=== PATIENT | male | born 1940 | race Caucasian/White ===

== ENCOUNTER 2020-08-15 13:24 | Emergency (ER) | payer MEDICARE, OTHER ==
[2020-08-15 13:29] VITALS: BP 153/91; PULSE 70; RESP 16; TEMP 98
[2020-08-15] MEDS ORDERED: ACETAMINOPHEN TAB 500 MG TAB PO STA (13:43)
--- NOTE | 2020-08-15 13:51 | ED ---
General Adult HPI - General Chief complaint: Back Pain/Injury Stated complaint: Shoulder pain Source: family (Significant other), EMS, RN notes reviewed Mode of arrival: EMS Limitations: no limitations - History of Present Illness Initial comments: 79-year-old male, presents to the emergency room with family after being told up to standing 3 days ago and now complaining of right upper shoulder pain. Significant other states that she took him to the chiropractor yesterday but he has continued to still have pain in that right shoulder. He was concerned for possible tear and recommended her 58 to the emergency room. Patient does have a history of a stroke with some right-sided weakness. Is able to ambulate home with a cane. -: days(s) (3) Location: upper extremity Radiation: extremity (Right shoulder) Severity scale (1-10): 10 Consistency: intermittent Improves with: rest Worsens with: movement Associated Symptoms: denies other symptoms Treatments Prior to Arrival: none - Related Data Home Medications Medication Instructions Recorded Confirmed ARIPiprazole [Abilify] 5 mg PO HS 08/15/20 08/15/20 Acetaminophen Tab [Tylenol Tab] 1,000 mg PO BID PRN 08/15/20 08/15/20 Aspirin EC [Ecotrin Low Dose] 81 mg PO BID 08/15/20 08/15/20 Cholecalciferol [Vitamin D3 (25 50 mcg PO DAILY 08/15/20 08/15/20 Mcg = 1000 Iu)] Citalopram Hydrobromide [CeleXA] 10 mg PO DAILY 08/15/20 08/15/20 Donepezil [Aricept] 10 mg PO HS 08/15/20 08/15/20 Famotidine [Pepcid] 20 mg PO DAILY 08/15/20 08/15/20 Loratadine [Claritin] 10 mg PO HS 08/15/20 08/15/20 Metoprolol Tartrate [Lopressor] 12.5 mg PO BID 08/15/20 08/15/20 Simvastatin [Zocor] 40 mg PO HS 08/15/20 08/15/20 Allergies Allergy/AdvReac Type Severity Reaction Status Date / Time Iodinated Contrast Media AdvReac PALPATATION Verified 08/15/20 15:35 S Review of Systems ROS Statement: Those systems with pertinent positive or pertinent negative responses have been documented in the HPI. ROS Other: All systems not noted in ROS Statement are negative. Past Medical History History of Any Multi-Drug Resistant Organisms: None Reported Past Psychological History: No Psychological Hx Reported Smoking Status: Never smoker Past Alcohol Use History: None Reported Past Drug Use History: None Reported General Exam Limitations: altered mental status (Slow to respond due to previous CVA), physical limitation General appearance: alert, in no apparent distress Head exam: Present: atraumatic, normocephalic, normal inspection Eye exam: Present: normal appearance, PERRL, EOMI. Absent: scleral icterus, conjunctival injection, periorbital swelling Pupils: Present: normal accommodation ENT exam: Present: normal exam, normal oropharynx, mucous membranes moist Neck exam: Present: normal inspection, full ROM. Absent: tenderness, meningismus, lymphadenopathy, thyromegaly Respiratory exam: Present: normal lung sounds bilaterally. Absent: respiratory distress, wheezes, rales, rhonchi, stridor, chest wall tenderness, accessory muscle use, decreased breath sounds, prolonged expiratory Cardiovascular Exam: Present: regular rate, normal rhythm, normal heart sounds. Absent: systolic murmur, diastolic murmur, rubs, gallop, clicks GI/Abdominal exam: Present: soft, normal bowel sounds. Absent: distended, tenderness, guarding, rebound, rigid Extremities exam: Present: normal inspection, tenderness (Right posterior shoulder pain with palpation and abduction), normal capillary refill. Absent: pedal edema, joint swelling, calf tenderness Back exam: Present: normal inspection. Absent: tenderness, CVA tenderness (R), CVA tenderness (L), muscle spasm, paraspinal tenderness, vertebral tenderness, rash noted Neurological exam: Present: alert, CN II-XII intact Psychiatric exam: Present: flat affect Skin exam: Present: warm, dry, intact, normal color. Absent: rash, cyanosis, diaphoretic, erythema, petechiae, pallor, mottled Course Vital Signs 08/15/20 13:25 Temperature 98.0 F Pulse Rate 70 Respiratory 16 Rate Blood Pressure 153/91 O2 Sat by Pulse 97 Oximetry Medical Decision Making - Medical Decision Making Chest x-ray shows mild pulmonary comments in the upper lobes with tiny bilateral pleural effusions which may represent mild congestive heart failure. There is no pneumothorax. There is no evidence of acute fracture or dislocation of the right shoulder. This is likely musculoskeletal pain and will be directed to follow up with primary care doctor next week Tylenol as needed for pain. Disposition Clinical Impression: Musculoskeletal pain of upper extremity Disposition: HOME SELF-CARE Condition: Fair Instructions (If sedation given, give patient instructions): Musculoskeletal Pain (ED), Shoulder Pain (ED) Additional Instructions: Use Tylenol as needed and heat to right shoulder. Follow-up with primary care doctor next week. Return if worsening symptoms or pain. Is patient prescribed a controlled substance at d/c from ED?: No Referrals: None,Stated [REFERRING] - 1-2 days Fede Carrero PAC [PHYSICIAN IMPREGNATOR] - 1-2 days Time of Disposition: 16:21
--- NOTE | 2020-08-15 14:45 | XR ---
EXAMINATION TYPE: XR chest 2V DATE OF EXAM: 08/15/2020 COMPARISON: NONE HISTORY: Pain TECHNIQUE: Frontal and lateral views of the chest are obtained. FINDINGS: Low lung volumes. Heart size is enlarged. Mild interstitial prominence at the upper lobes may represent mild developing edema or crowding from low lung volumes. There are probable small pleur al effusions. No pneumothorax. Mild left basilar atelectasis or scarring. IMPRESSION: 1. Cardiomegaly, and mild pulmonary interstitial prominence at the upper lobes and tiny bilateral ple ural effusions. This may represent developing mild congestive heart failure. Continued follow-up is r ecommended. 2. Mild left basilar atelectasis or scarring.
--- NOTE | 2020-08-15 15:06 | XR ---
EXAMINATION TYPE: XR shoulder complete RT DATE OF EXAM: 08/15/2020 CLINICAL HISTORY: Pain patient had a chiropractor adjustment yesterday. TECHNIQUE: Three views of the right shoulder are obtained. COMPARISON: None. FINDINGS: There is no acute fracture/dislocation evident in the right shoulder. The right lung apex is clear at the visualized portions. Soft tissues are unremarkable. IMPRESSION: 1. No evidence of acute fracture or dislocation of the right shoulder. Mild degenerative changes are seen.
== END 2020-08-15 16:39 | disposition home or self-care (01) ==
LOC: EC 13:24
DX: M25.511 Pain in right shoulder (principal); Z79.82 Long term (current) use of aspirin; Z79.899 Other long term (current) drug therapy
CPT/HCPCS: 71046; 99284

== ENCOUNTER 2021-04-11 01:50 | Emergency (ER) | payer OTHER, MEDICARE ==
[2021-04-11 01:58] VITALS: RESP 18
--- NOTE | 2021-04-11 03:17 | XR ---
EXAMINATION TYPE: XR chest 1V portable DATE OF EXAM: 04/11/2021 COMPARISON: 04/05/2021 HISTORY: Fever TECHNIQUE: Single view FINDINGS: There is no heart failure nor confluent pneumonic infiltrate. There are calcified granuloma ta at the pulmonary varun. There are chest leads. There is no pleural effusion. IMPRESSION: No active cardiopulmonary disease. Old granulomatous disease. Normal heart.
--- NOTE | 2021-04-11 03:19 | XR ---
EXAMINATION TYPE: XR pelvis AP view DATE OF EXAM: 04/11/2021 COMPARISON: NONE HISTORY: Fall. Pain TECHNIQUE: Single view FINDINGS: The pelvic ring is intact. Proximal femurs are intact. There is mild acetabular spurring. S acroiliac joints are intact. There is no evidence of a fracture. There is surgical clips in the pelvi s. IMPRESSION: No acute abnormality of the pelvis. No fracture seen.
--- NOTE | 2021-04-11 03:22 | CT ---
EXAMINATION TYPE: CT brain cspine wo con DATE OF EXAM: 04/11/2021 COMPARISON: CT scan cervical spine 04/05/2021 HISTORY: Fall CT DLP: 1505.20 mGycm Automated exposure control for dose reduction was used. Images obtained without contrast. There is diffuse cerebral cortical atrophy. There is enlargement of the ventricles. There is no mass effect or midline shift. There is no evidence of intracranial hemorrhage. Calvarium is intact. Skull base is intact. There is normal aeration of the mastoid sinuses. The cervical vertebra have normal alignment. Posterior elements are intact. There is degenerative dis c space narrowing throughout the cervical spine. There is no compression fracture. Facet joints are i ntact. The skull base is intact. IMPRESSION: Negative CT scan of the cervical spine. No fracture. No change. Multilevel degenerative disc space na rrowing. Moderate diffuse cerebral atrophy. No acute intracranial abnormality.
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
[2021-04-11 03:52] LABS: Basophils % (A) 0 %; Eosinophils # (A) 0.3 k/uL (0-0.7); Eosinophils % (A) 4 %; HCT 42.8 % (39.0-53.0); HGB 14.1 gm/dL (13.0-17.5); Lymphocytes # (A) 0.9 k/uL (1.0-4.8); Lymphocytes % (A) 13 %; MCH 31.9 pg (25.0-35.0); MCV 96.4 fL (80.0-100.0); Mean Platelet Volume 7.6; Monocytes # (A) 0.3 k/uL (0-1.0); Monocytes % (A) 5 %; Neutrophils % (A) 77 %; Platelet Count 184 k/uL (150-450); RBC 4.44 m/uL (4.30-5.90); RDW 13.3 % (11.5-15.5); WBC 6.5 k/uL (3.8-10.6)
[2021-04-11 04:12] LABS: Albumin 3.8 g/dL (3.5-5.0); Calcium 9.1 mg/dL (8.4-10.2); Potassium 4.3 mmol/L (3.5-5.1); Total Bilirubin 0.8 mg/dL (0.2-1.3); Total Protein 6.6 g/dL (6.3-8.2)
[2021-04-11 05:07] VITALS: BP 156/82; PULSE 56; TEMP 97.8
== END 2021-04-11 05:58 ==
LOC: EC 01:50
DX: S00.01XA Abrasion of scalp, initial encounter (principal); F03.90 Unspecified dementia, unspecified severity, without behavioral disturbance, psychotic disturbance, mood disturbance, and anxiety; F25.9 Schizoaffective disorder, unspecified; Z79.82 Long term (current) use of aspirin; Z79.899 Other long term (current) drug therapy; W19.XXXA Unspecified fall, initial encounter; Y92.129 Unspecified place in nursing home as the place of occurrence of the external cause
CPT/HCPCS: 36415; 70450; 71045; 72125; 72170; 80053; 84484; 85025; 93005; 99285

== ENCOUNTER 2021-04-30 17:46 | Emergency (ER) | payer OTHER, MEDICARE ==
[2021-04-30 17:55] VITALS: TEMP 98.4
[2021-04-30] MEDS ORDERED: SODIUM CHLORIDE 0.9% 500 ML 500 ML IV ONE (18:38)
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
--- NOTE | 2021-04-30 19:28 | XR ---
EXAMINATION TYPE: XR chest 1V DATE OF EXAM: 04/30/2021 7:10 PM COMPARISON: Radiograph 04/11/2021 TECHNIQUE: XR chest 1V Frontal view of the chest. CLINICAL INDICATION:Male, 80 years old with history of altered, fevers; FINDINGS: Lungs/Pleura: There is no evidence of pleural effusion, focal consolidation, or pneumothorax. Pulmonary vascularity: Unremarkable. Heart/mediastinum: Cardiomediastinal silhouette is unremarkable. Musculoskeletal: No acute osseous pathology. IMPRESSION: No acute cardiopulmonary disease/process.
[2021-04-30 20:00] LABS: Basophils % (A) 0 %; Eosinophils # (A) 0.2 k/uL (0-0.7); Eosinophils % (A) 5 %; HGB 13.5 gm/dL (13.0-17.5); Lymphocytes # (A) 0.9 k/uL (1.0-4.8); Lymphocytes % (A) 20 %; MCH 31.3 pg (25.0-35.0); MCV 97.6 fL (80.0-100.0); Mean Platelet Volume 8.4; Monocytes # (A) 0.5 k/uL (0-1.0); Monocytes % (A) 11 %; Neutrophils # (A) 2.9 k/uL (1.3-7.7); Neutrophils % (A) 63 %; Platelet Count 238 k/uL (150-450); RBC 4.31 m/uL (4.30-5.90); RDW 13.2 % (11.5-15.5); WBC 4.6 k/uL (3.8-10.6)
[2021-04-30 20:16] LABS: Albumin 3.7 g/dL (3.5-5.0); Calcium 8.8 mg/dL (8.4-10.2); Potassium 5.3 mmol/L (3.5-5.1); Total Protein 6.9 g/dL (6.3-8.2)
[2021-04-30 22:02] LABS: Appearance,Urine Clear (Clear); Bilirubin,Urine Negative (Negative); Blood,Urine Negative (Negative); Color,Urine Yellow; Glucose,Urine (UA) Negative (Negative); Ketones,Urine Negative (Negative); Leukocyte Esterase,Urine Negative (Negative); Nitrite,Urine Negative (Negative); PH, Urine 5.5 (5.0-8.0); Protein,Urine Negative (Negative); Specific Gravity,Urine 1.025 (1.001-1.035); Urobilinogen,Urine <2.0 mg/dL (<2.0)
[2021-04-30 22:59] VITALS: BP 130/66; PULSE 74; RESP 16
== END 2021-04-30 23:30 | disposition home or self-care (01) ==
LOC: EC 17:46
DX: F03.90 Unspecified dementia, unspecified severity, without behavioral disturbance, psychotic disturbance, mood disturbance, and anxiety (principal); Z82.49 Family history of ischemic heart disease and other diseases of the circulatory system; Z91.041 Radiographic dye allergy status
CPT/HCPCS: 36415; 71045; 80053; 81003; 85025; 87040; 99285

== ENCOUNTER 2022-12-30 07:58 | Inpatient (IN) | payer OTHER, MEDICARE ==
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
[2022-12-30 08:54] LABS: Basophils % (A) 0 %; Eosinophils # (A) 0.1 k/uL (0-0.7); Eosinophils % (A) 2 %; HCT 45.8 % (39.0-53.0); HGB 15.4 gm/dL (13.0-17.5); Lymphocytes % (A) 12 %; MCH 32.8 pg (25.0-35.0); MCHC 33.7 g/dL (31.0-37.0); MCV 97.3 fL (80.0-100.0); Mean Platelet Volume 8.5; Monocytes # (A) 0.4 k/uL (0-1.0); Monocytes % (A) 5 %; Neutrophils # (A) 6.4 k/uL (1.3-7.7); Neutrophils % (A) 79 %; Platelet Count 168 k/uL (150-450); RDW 13.9 % (11.5-15.5); WBC 8.1 k/uL (3.8-10.6)
[2022-12-30 09:03] LABS: African American GFR (CKD) 77 (>60 ml/min/1.73 sqM); Anion Gap 14 mmol/L; Blood Urea Nitrogen 20 mg/dL (9-20); Calcium 9.6 mg/dL (8.4-10.2); Carbon Dioxide 23 mmol/L (22-30); Chloride 105 mmol/L (98-107); Glucose 124 mg/dL (74-99); Non-African American GFR(CKD) 67 (>60 ml/min/1.73 sqM); Potassium 4.1 mmol/L (3.5-5.1); Sodium 142 mmol/L (137-145)
[2022-12-30 09:09] LABS: INR 0.9 (<1.2); Prothrombin Time 10.1 sec (10.0-12.5)
[2022-12-30 09:13] LABS: Partial Thromboplastin Time 21.6 sec (22.0-30.0)
--- NOTE | 2022-12-30 09:28 | CT ---
EXAMINATION TYPE: CT brain wo con DATE OF EXAM: 12/30/2022 COMPARISON: 04/11/2021 HISTORY: 82-year-old male ksyncope, altered mental status TECHNIQUE: Examination was done in axial plane without intravenous contrast. Coronal and sagittal r econstructions performed. CT DLP: 1078 mGycm Automated exposure control for dose reduction was used. FINDINGS: There is no evidence of acute intracranial hemorrhage, acute ischemic changes, mass, mass-effect, or extra-axial fluid collection. There is no effacement of cerebral sulci or basal subarachnoid cister ns. There is redemonstration moderate hydrocephalus, Andrews ratio calculated at 0.45. This is relative ly unchanged from 04/11/2021. Mild to moderate patchy periventricular white matter hypodensity is uncha nged. Is no midline shift. Wang-white matter distinction is preserved. Hypodensity inferior right cerebellar hemisphere remains unchanged compatible with prior infarct. Trace mucosal thickening ethmoid air cells. Leftward nasal septal deviation. Otherwise, paranasal sin uses and mastoid air cells well pneumatized. The globes are intact. IMPRESSION: 1. Unchanged moderate hydrocephalus/ventriculomegaly possibly in part due to central cerebral atrophy . Correlate to exclude a component of NPH. 2. 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 Similar mild burden of chronic small vessel ischem ic disease. 3. No acute intracranial abnormality seen.
--- NOTE | 2022-12-30 09:42 | XR ---
EXAMINATION TYPE: XR chest 1V portable DATE OF EXAM: 12/30/2022 Comparison: 04/30/2021 Clinical History: 82 year-old male shortness of breath dyspnea Findings: Low lung volumes. Heart mildly enlarged. Perihilar and interstitial density. No lisset consolidation o r pleural effusion. Impression: Mild cardiomegaly with hypoventilatory changes and perihilar interstitial opacities. Correlate for CH F with pulmonary vascular congestion.
[2022-12-30] MEDS ORDERED: diphenhydrAMINE 50 MG/ML 1 ML VIAL IVP STA (09:49)
[2022-12-30] MEDS ORDERED: FAMOTIDINE 20 MG/2 ML VIAL IV STA (09:49)
[2022-12-30] MEDS ORDERED: methylPREDNISolone SOD SUCCI 125 MG/2 ML VIAL IV STA (09:49)
--- NOTE | 2022-12-30 10:33 | CT ---
EXAMINATION TYPE: CT angio chest CT DLP: 742.7 mGycm, Automated exposure control for dose reduction was used. DATE OF EXAM: 12/30/2022 10:25 AM COMPARISON: Chest radiograph from same day. CLINICAL INDICATION:Male, 82 years old with history of positive D-dimer; Elevated d dimer TECHNIQUE/CONTRAST: CTA scan of the thorax is performed with IV Contrast, patient injected with 100 mL of Isovue 300, MIP images are created and reviewed these are created on a separate workstation.. FINDINGS: Pulmonary Artery: There is no evidence for a filling defect within the pulmonary vasculature to sugge st acute pulmonary embolism. The pulmonary artery is of normal size. Lungs/Pleura: No evidence of focal consolidation, pleural effusion or pneumothorax. Airway: Large airways are patent. Heart: The heart is mildly enlarged for size. There is mild coronary artery cusp patient's. Vasculature: No evidence of aortic aneurysm. Mediastinum: No gross evidence of adenopathy. Musculoskeletal: No acute osseous abnormalities Soft Tissues: Bilateral gynecomastia changes. Lower neck: No significant findings. Upper Abdomen: Large left renal cyst. Left hepatic lobe probable cyst. IMPRESSION: 1. No evidence of pulmonary embolism. 2. Mild emphysema changes.
[2022-12-30 11:36] LABS: Appearance,Urine Clear (Clear); Bacteria,Urine Occasional /hpf; Bilirubin,Urine Negative (Negative); Blood,Urine Trace (Negative); Color,Urine Colorless; Glucose,Urine (UA) Negative (Negative); Ketones,Urine Negative (Negative); Leukocyte Esterase,Urine Large (Negative); Mucus,Urine Rare /hpf; Nitrite,Urine Positive (Negative); PH, Urine 5.5 (5.0-8.0); Protein,Urine Trace (Negative); RBC,Urine 5 /hpf (0-5); Specific Gravity,Urine 1.028 (1.001-1.035); Urobilinogen,Urine <2.0 mg/dL (<2.0); WBC,Urine 76 /hpf (0-5)
[2022-12-30] MEDS ORDERED: cefTRIAXone IN SWFI 1,000 MG/10 ML SYRINGE IVP STA (11:44)
[2022-12-30] MEDS ORDERED: SODIUM CHLORIDE 0.9% 1,000 ML IV STA ×3 (11:44→12:45)
[2022-12-30] MEDS ORDERED: NALOXONE 0.4 MG/ML 1 ML VIAL IV PRN (11:47)
[2022-12-30] MEDS ORDERED: ACETAMINOPHEN TAB 325 MG TAB PO PRN (12:45)
[2022-12-30] MEDS ORDERED: LORazepam 2 MG/ML INJ IV PRN (12:45)
[2022-12-30] MEDS ORDERED: ONDANSETRON 4 MG/2 ML VIAL IVP PRN (12:46)
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
[2022-12-30] MEDS ORDERED: OLANZapine 10 MG VIAL IM PRN (13:07)
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
[2022-12-30] MEDS ORDERED: SODIUM CHLORIDE 0.9% 1,000 ML IV ONE (18:15)
[2022-12-30] MEDS: levETIRAcetam IV 500 MG/5 ML VIAL IVP SCH (19:42)
[2022-12-30] MEDS ORDERED: ALPRAZolam 0.25 MG TAB PO PRN (19:43)
[2022-12-30] MEDS: ALPRAZolam 0.25 MG TAB PO SCH (20:15)
[2022-12-30] MEDS: CITALOPRAM HYDROBROMIDE 10 MG TAB PO SCH (20:16)
[2022-12-30] MEDS: SENNOSIDES-DOCUSATE SODIUM 1 EACH TAB PO SCH (20:16)
[2022-12-30] MEDS: FAMOTIDINE 20 MG TAB PO SCH (20:16)
[2022-12-30] MEDS: hydrALAZINE HCL 20 MG/ML 1 ML VIAL IVP PRN (20:16)
[2022-12-30] MEDS: METOPROLOL TARTRATE 12.5 MG TAB PO SCH (20:16)
[2022-12-30] MEDS: ARIPiprazole 5 MG TAB PO SCH (20:16)
[2022-12-31] MEDS: SENNOSIDES-DOCUSATE SODIUM 1 EACH TAB PO SCH ×2 (09:51→20:22)
[2022-12-31] MEDS: METOPROLOL TARTRATE 12.5 MG TAB PO SCH ×2 (09:51→20:21)
[2022-12-31] MEDS: ASPIRIN 81 MG PO SCH (09:51)
[2022-12-31] MEDS: levETIRAcetam IV 500 MG/5 ML VIAL IVP SCH ×2 (09:51→20:22)
[2022-12-31 10:52] LABS: Basophils # (A) 0.02 X 10*3/uL (0.00-0.10); Basophils % (A) 0.2 %; Eosinophils # (A) 0 X 10*3/uL (0.04-0.35); Eosinophils % (A) 0 %; HCT 41.1 % (39.6-50.0); HGB 13.4 g/dL (13.0-17.0); Lymphocytes # (A) 0.46 X 10*3/uL (0.90-5.00); Lymphocytes % (A) 4.6 %; MCH 31.4 pg (27.0-32.0); MCHC 32.6 g/dL (32.0-37.0); MCV 96.3 FL (80.0-97.0); Mean Platelet Volume 10.5 FL (9.5-12.2); Monocytes # (A) 0.32 X 10*3/uL (0.20-1.00); Monocytes % (A) 3.2 %; NRBC Per 100 WBC 0 X 10*3/uL (0.00-0.01); Neutrophils % (A) 91.5 %; Platelet Count 154 X 10*3/uL (140-440); RBC 4.27 X 10*6/uL (4.40-5.60); RDW 13.4 % (11.5-14.5); WBC 9.95 X 10*3/uL (4.50-10.00)
[2022-12-31 11:02] LABS: BUN/Creat Ratio 18.73 Ratio (12.00-20.00); Blood Urea Nitrogen 20.6 mg/dL (9.0-27.0); Chloride 107 mmol/L (96-109); Glucose 108 mg/dL (70-110); Potassium 4.8 mmol/L (3.5-5.5); Sodium 141 mmol/L (135-145)
--- NOTE | 2022-12-31 11:44 | EEG ---
ELECTROENCEPHALOGRAM REPORT PREAMBLE: This is an 82-year-old male with altered mental status. The patient does have advanced dementia and lives in the half-way facility. Yesterday, he had an event very stiffened up and possibly had a seizure. CURRENT MEDICATIONS: 1. Tylenol. 2. Xanax. 3. Abilify. 4. Aspirin. 5. Celexa. 6. Keppra. 7. Ativan. 8. Lopressor. 9. Zyprexa. EEG FINDINGS: This is a 21-channel digital EEG recorded with video component, utilizing 10/20 [employer] system with referential and bipolar montages. Background consists of moderately well-developed, well-regulated, predominantly mixed frequencies of 6 Hz theta intermixed with some delta slowing seen in bihemispheric region. Background does not seem to be reactive to eye opening or closing. Some frontal intermittent rhythmic delta activity was seen. Different stages of sleep were not seen. No focal or generalized epileptiform activity was seen. EKG channel showed no obvious arrhythmia. Photic stimulation was not done. IMPRESSION: This is an abnormal EEG due to background slowing of moderate degree. This is suggestive of generalized cerebral dysfunction as can be seen with toxic metabolic encephalopathy or related to diffuse structural brain abnormality. Clinical correlation is recommended. No epileptiform activity was seen. MMODL / IJN: [id number] /
--- NOTE | 2022-12-31 13:16 | P.PN ---
Subjective Progress Note Date: 12/31/22 * 82-year-old gentleman with past medical history significant for hypertension, advanced dementia, dyslipidemia presented to the emergency department sent in from intermediate for him. Mentation, noted to have hypoxia and the whole body was stiff. Patient was in usual state of health when all of a sudden he had an episode in his whole body became stiff. EMS was called no tonic-clonic activity was noted. Patient was noted to be stiff and rigid for several seconds. Patient is a poor historian and has advanced dementia. Patient have a brief episode and he snapped out of it patient was sent and also noted to have hypoxia sputum 80% * Workup obtained in ER included CT brain which showed enlarged ventricles no acute intracranial process CT angina chest was obtained which was negative for pulmonary embolism * Blood work obtained including CBC which showed WBC of 8.1 hemoglobin 15 platelet count of 168. INR of 0.9 d-dimer greater than 34 * patient had a plasma lactate of 7.4 serum sodium of 142 potassium 4.1 BUN 20 creatinine 1.05 * Patient had urinalysis done which showed large leukocyte esterase and nitrate positive large WBC noted, patient was started on IV Rocephin urine cultures ordered * 12/31/22: Patient seen and evaluated bedside, patient resuscitated with fluid lactic acid levels improved, patient was started on IV Keppra by neurology, EEG ordered as well, mentation has improved slightly patient needed one-to-one feeding nursing staff at bedside as well REVIEW OF SYSTEMS: Able to obtain secondary to do advanced dementia PHYSICAL EXAMINATION: GENERAL: The patient is alert and oriented x 1 , ill appearance HEENT: Pupils are round and equally reacting to light. CARDIOVASCULAR: S1 and S2 present, acute cardiac noted PULMONARY: Chest is clear to auscultation, no wheezing or crackles. ABDOMEN: Soft, nontender, nondistended, normoactive bowel sounds. No palpable organomegaly. MUSCULOSKELETAL: No joint swelling or deformity. EXTREMITIES: No cyanosis, clubbing, or pedal edema. NEUROLOGICAL: Awake alert, answering questions mentation has improved however continue to have severe dementia cognitive impairment Objective - Vital Signs Vital signs: Vital Signs Temp 98.1 F 12/31/22 12:32 Pulse 85 12/31/22 12:32 Resp 19 12/31/22 12:32 BP 158/83 12/31/22 12:32 Pulse Ox 93 L 12/31/22 12:32 FiO2 Intake & Output 12/30/22 12/31/22 12/31/22 18:59 06:59 18:59 Output Total 500 Balance -500 Weight 83.915 kg Output: Urine 500 Other: Voiding Method Incontinent Incontinent External Catheter External Catheter # Voids 1 - Labs CBC & Chem 7: 12/31/22 05:35 12/31/22 05:35 Labs: Abnormal Lab Results - Last 24 Hours (Table) 12/30/22 12/30/22 12/31/22 Range/Units 16:49 21:41 05:35 RBC 4.27 L (4.40-5.60) X 10*6/uL Neutrophils # 9.10 H (1.80-7.70) X 10*3/uL Lymphocytes # 0.46 L (0.90-5.00) X 10*3/uL Eosinophils # 0 L (0.04-0.35) X 10*3/uL Plasma Lactic Acid Lester 4.5 H* 4.4 H* (0.7-2.0) mmol/L Assessment and Plan Assessment: Assessment and plan * Acute on chronic encephalopathy with suspicion for seizure * Advanced dementia * Urinary tract infection * Lactic acidosis resolved * History of hypertension * Hyperlipidemia * In regards to abnormal mentation and rigid posture neurology consulted to evaluate for EEG, abnormal lactate levels noted unusual for patient presentation lactic acidosis seems noninfectious in origin, started on IV Keppra will monitor for worsening behavior * In regards to urinary tract infection, continue IV Rocephin, urine cultures ordered, patient resuscitated with IV fluid, will change to KVO at this point given naproxen/ * In regards to advanced dementia continue with frequent orientation home medic ations to be reviewed and reconciled * Hospice consulted * CODE STATUS is no code Time with Patient: Less than 30
--- NOTE | 2022-12-31 14:50 | P.PN ---
Subjective Progress Note Date: 12/31/22 Patient was initially seen by Dr. Dick Terry. Please refer to his note for details. Patient is a 82-year-old male with history of advanced dementia, who presents because of stiffening, hypoxia and elevated lactate. Dr. Terry started the patient on Keppra [address] Terry feels patient possibly has Parkinson's and possible NPH but no intervention needed for NPH because of advanced dementia. Patient appears to be having some difficulty breathing, wheezing obviously. He is otherwise laying in the bed, watching football game. Some other workup during his hospital visit consisted of: Initial differential is unremarkable Sodium, BUN and creatinine, all within normal limits Serum glucose is 124 Initial plasma left acid venous 7.4 and repeat is 2.3. Urinalysis is possibly just. Underlying urinary tract infection. CT the head is reported as unchanged moderate hydrocephalus/ventricular megaly possibly in part due to central cerebral atrophy. Correlate to exclude a component of NPH. 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 Similar mid burden of chronic small vessel ischemic disease. No acute intracranial abnormality seen. I personally reviewed CT of the head and I agree with the report. Objective - Vital Signs Vital signs: Vital Signs Temp 98.1 F 12/31/22 12:32 Pulse 85 12/31/22 12:32 Resp 19 12/31/22 12:32 BP 158/83 12/31/22 12:32 Pulse Ox 93 L 12/31/22 12:32 FiO2 Intake & Output 12/30/22 12/31/22 12/31/22 18:59 06:59 18:59 Output Total 500 Balance -500 Weight 83.915 kg Output: Urine 500 Other: Voiding Method Incontinent Incontinent External Catheter External Catheter # Voids 1 - Exam Patient is alert and awake, beers encephalopathic. He is short of breath, having wheezing obviously noticeable. Patient knows his name, could not tell his age. He does not know what month or what year is it. Does not know what city or state he lives in. He mumbles. His speech is often difficult to understand. Patient has resting tremors of hands. Tone is increased. 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 Deltoids are 4+. He does withdraw to painful stimuli with the nailbed pressure equal with either side. Patient has mild peripheral edema. - Labs CBC & Chem 7: 12/31/22 05:35 12/31/22 05:35 Labs: Abnormal Lab Results - Last 24 Hours (Table) 12/30/22 12/30/22 12/31/22 Range/Units 16:49 21:41 05:35 RBC 4.27 L (4.40-5.60) X 10*6/uL Neutrophils # 9.10 H (1.80-7.70) X 10*3/uL Lymphocytes # 0.46 L (0.90-5.00) X 10*3/uL Eosinophils # 0 L (0.04-0.35) X 10*3/uL Plasma Lactic Acid Lester 4.5 H* 4.4 H* (0.7-2.0) mmol/L Assessment and Plan Assessment: This is an 82-year-old gentleman who presented emergency department on his nursing facility because of stiffening and hypoxia concerning for seizure. His plasma left acid vein was elevated. Probable new onset ?seizure. Possible provoked due to metabolic dysfunction/UTI. Resting tremor bilateral upper extremity: Concern for Parkinson's disease and on known duration. Unsure if it's exacerbated by acute UTI Acute UTI History of advanced dementia Enlarged ventricles on CT of brain: Possible central atrophy. Rule out possible normal pressure hydrocephalus Plan: Dr. Terry started the patient on Keppra 500 mg IV every 12 hours. One of the side effects mood irritability and if he does consider putting him on Depakote 500 twice a day and which has antiepileptic and mood benefit. He did not start Depakote because of tremors. EEG revealed background slowing of moderate degree, suggestive of encephalopathy. No epileptiform activity was seen. Patient's episode of stiffening could be related to metabolic dysfunction. Once his encephalopathy improved, and UTI treated, would consider tapering off Keppra. Consider later prolonged EEG. Unable to obtain MRI the brain since the patient is uncooperative Patient on ceftriaxone for acute UTI. TSH 2.46, vitamin B-12 573, folate 17.2. Seizure precaution seizure pads Patient was started on Ativan 1 mg every 4 hours when necessary Recommend reevaluation of his resting tremor for consideration of Parkinson's and if UTI is resolved and continues to have significant tremor consider starting Sinemet We'll defer the rest of the medical management to primary team
[2022-12-31] MEDS: ALPRAZolam 0.25 MG TAB PO SCH (20:21)
[2022-12-31] MEDS: ARIPiprazole 5 MG TAB PO SCH (20:21)
[2022-12-31] MEDS: CITALOPRAM HYDROBROMIDE 10 MG TAB PO SCH (20:21)
[2022-12-31] MEDS: FAMOTIDINE 20 MG TAB PO SCH (20:21)
[2023-01-01 08:41] LABS: BUN/Creat Ratio 18.83 Ratio (12.00-20.00); Blood Urea Nitrogen 22.6 mg/dL (9.0-27.0); Calcium 8.7 mg/dL (8.7-10.3); Carbon Dioxide 22.2 mmol/L (21.6-31.8); Chloride 109 mmol/L (96-109); Glucose 102 mg/dL (70-110); Sodium 141 mmol/L (135-145)
[2023-01-01 09:10] LABS: HGB 11.7 g/dL (13.0-17.0); MCHC 32.5 g/dL (32.0-37.0); MCV 98.4 FL (80.0-97.0); Mean Platelet Volume 11.3 FL (9.5-12.2); NRBC Per 100 WBC 0 X 10*3/uL (0.00-0.01); Platelet Count 136 X 10*3/uL (140-440); RBC 3.66 X 10*6/uL (4.40-5.60); RDW 13.7 % (11.5-14.5); WBC 7.64 X 10*3/uL (4.50-10.00)
[2023-01-01] MEDS: levETIRAcetam IV 500 MG/5 ML VIAL IVP SCH ×2 (09:29→20:56)
[2023-01-01] MEDS: SENNOSIDES-DOCUSATE SODIUM 1 EACH TAB PO SCH ×2 (09:33→20:56)
[2023-01-01] MEDS: METOPROLOL TARTRATE 12.5 MG TAB PO SCH ×2 (09:33→20:56)
[2023-01-01] MEDS: ASPIRIN 81 MG PO SCH (09:33)
--- NOTE | 2023-01-01 12:48 | P.PN ---
Subjective Progress Note Date: 01/01/23 * 82-year-old gentleman with past medical history significant for hypertension, advanced dementia, dyslipidemia presented to the emergency department sent in from [facility] for him. Mentation, noted to have hypoxia and the whole body was stiff. Patient was in usual state of health when all of a sudden he had an episode in his whole body became stiff. EMS was called no tonic-clonic activity was noted. Patient was noted to be stiff and rigid for several seconds. Patient is a poor historian and has advanced dementia. Patient have a brief episode and he snapped out of it patient was sent and also noted to have hypoxia sputum 80% * Workup obtained in ER included CT brain which showed enlarged ventricles no acute intracranial process CT angina chest was obtained which was negative for pulmonary embolism * Blood work obtained including CBC which showed WBC of 8.1 hemoglobin 15 platelet count of 168. INR of 0.9 d-dimer greater than 34 * patient had a plasma lactate of 7.4 serum sodium of 142 potassium 4.1 BUN 20 creatinine 1.05 * Patient had urinalysis done which showed large leukocyte esterase and nitrate positive large WBC noted, patient was started on IV Rocephin urine cultures ordered * 12/31/22: Patient seen and evaluated bedside, patient resuscitated with fluid lactic acid levels improved, patient was started on IV Keppra by neurology, EEG ordered as well, mentation has improved slightly patient needed one-to-one feeding nursing staff at bedside as well * 01/01/2023: Patient seen and evaluated bedside, mentation continued to wax and wane, CRP elevated at 5.5, urine cultures and blood cultures reviewed, waiting for hospice evaluation REVIEW OF SYSTEMS: Able to obtain secondary to do advanced dementia PHYSICAL EXAMINATION: GENERAL: The patient is alert and oriented x 1 , ill appearance, lethargic easily arousable HEENT: Pupils are round and equally reacting to light. CARDIOVASCULAR: S1 and S2 present, acute cardiac noted PULMONARY: Chest is clear to auscultation, no wheezing or crackles. ABDOMEN: Soft, nontender, nondistended, normoactive bowel sounds. No palpable organomegaly. MUSCULOSKELETAL: No joint swelling or deformity. EXTREMITIES: No cyanosis, clubbing, or pedal edema. NEUROLOGICAL: Awake alert, answering questions mentation has improved however co ntinue to have severe dementia cognitive impairment Objective - Vital Signs Vital signs: Vital Signs Temp 98.2 F 01/01/23 12:41 Pulse 67 01/01/23 12:41 Resp 18 01/01/23 12:41 BP 156/84 01/01/23 12:41 Pulse Ox 100 01/01/23 12:41 FiO2 Intake & Output 12/31/22 01/01/23 01/01/23 18:59 06:59 18:59 Intake Total 1000 Output Total 300 300 Balance -300 700 Intake: Oral 1000 Output: Urine 300 300 Other: Voiding Method Incontinent Incontinent Incontinent External Catheter External Catheter External Catheter - Labs CBC & Chem 7: 01/01/23 04:17 01/01/23 04:17 Labs: Abnormal Lab Results - Last 24 Hours (Table) 01/01/23 01/01/23 Range/Units 04:17 04:17 RBC 3.66 L (4.40-5.60) X 10*6/uL Hgb 11.7 L (13.0-17.0) g/dL Hct 36.0 L (39.6-50.0) % MCV 98.4 H (80.0-97.0) FL Plt Count 136 L (140-440) X 10*3/uL C-Reactive Protein 5.50 H (0.00-0.80) mg/dL Microbiology - Last 24 Hours (Table) 12/30/22 10:52 Blood Culture - Preliminary Blood 12/30/22 18:08 Urine Culture - Final Urine,Clean Catch Assessment and Plan Assessment: Assessment and plan * Acute on chronic encephalopathy with suspicion for seizure * Advanced dementia * Urinary tract infection * Lactic acidosis resolved * History of hypertension * Hyperlipidemia * In regards to abnormal mentation and rigid posture neurology consulted to evaluate for EEG>> abnormal EEG secondary to slowing consistent with toxic metabolic encephalopathy * abnormal lactate levels noted unusual for patient presentation lactic acidosis seems noninfectious in origin, started on IV Keppra will monitor for worsening behavior * In regards to urinary tract infection, continue IV Rocephin, urine cultures ordered, patient resuscitated with IV fluid, will change to KVO = * In regards to advanced dementia continue with frequent orientation home medications to be reviewed and reconciled * Hospice consulted>> pending placement * CODE STATUS is no code
[2023-01-01] MEDS: ALPRAZolam 0.25 MG TAB PO SCH (20:56)
[2023-01-01] MEDS: CITALOPRAM HYDROBROMIDE 10 MG TAB PO SCH (20:56)
[2023-01-01] MEDS: ARIPiprazole 5 MG TAB PO SCH (20:56)
[2023-01-01] MEDS: FAMOTIDINE 20 MG TAB PO SCH (20:56)
[2023-01-02] MEDS: METOPROLOL TARTRATE 12.5 MG TAB PO SCH ×2 (08:13→20:22)
[2023-01-02] MEDS: ASPIRIN 81 MG PO SCH (08:13)
[2023-01-02] MEDS: levETIRAcetam IV 500 MG/5 ML VIAL IVP SCH ×2 (08:13→20:22)
[2023-01-02] MEDS: SENNOSIDES-DOCUSATE SODIUM 1 EACH TAB PO SCH ×2 (08:14→20:22)
[2023-01-02 09:34] LABS: HCT 35.2 % (39.6-50.0); HGB 11.4 g/dL (13.0-17.0); MCH 31.9 pg (27.0-32.0); MCHC 32.4 g/dL (32.0-37.0); MCV 98.6 FL (80.0-97.0); Mean Platelet Volume 10.8 FL (9.5-12.2); NRBC Per 100 WBC 0 X 10*3/uL (0.00-0.01); Platelet Count 115 X 10*3/uL (140-440); RBC 3.57 X 10*6/uL (4.40-5.60); RDW 13.3 % (11.5-14.5); WBC 6.38 X 10*3/uL (4.50-10.00)
[2023-01-02 09:50] LABS: Blood Urea Nitrogen 15.9 mg/dL (9.0-27.0); Calcium 8.6 mg/dL (8.7-10.3); Carbon Dioxide 25.2 mmol/L (21.6-31.8); Chloride 107 mmol/L (96-109); Glucose 103 mg/dL (70-110); Potassium 4.2 mmol/L (3.5-5.5); Sodium 141 mmol/L (135-145)
--- NOTE | 2023-01-02 11:53 | P.PN ---
Subjective Progress Note Date: 01/02/23 * 82-year-old gentleman with past medical history significant for hypertension, advanced dementia, dyslipidemia presented to the emergency department [facility] in from [facility] for him. Mentation, noted to have hypoxia and the whole body was stiff. Patient was in usual state of health when all of a sudden he had an episode in his whole body became stiff. EMS was called no tonic-clonic activity was noted. Patient was noted to be stiff and rigid for several seconds. Patient is a poor historian and has advanced dementia. Patient have a brief episode and he snapped out of it patient was sent and also noted to have hypoxia sputum 80% * Workup obtained in ER included CT brain which showed enlarged ventricles no acute intracranial process CT angina chest was obtained which was negative for pulmonary embolism * Blood work obtained including CBC which showed WBC of 8.1 hemoglobin 15 platelet count of 168. INR of 0.9 d-dimer greater than 34 * patient had a plasma lactate of 7.4 serum sodium of 142 potassium 4.1 BUN 20 creatinine 1.05 * Patient had urinalysis done which showed large leukocyte esterase and nitrate positive large WBC noted, patient was started on IV Rocephin urine cultures ordered * 12/31/22: Patient seen and evaluated bedside, patient resuscitated with fluid lactic acid levels improved, patient was started on IV Keppra by neurology, EEG ordered as well, mentation has improved slightly patient needed one-to-one feeding nursing staff at bedside as well * 01/01/2023: Patient seen and evaluated bedside, mentation continued to wax and wane, CRP elevated at 5.5, urine cultures and blood cultures reviewed, waiting for hospice evaluation * 01/02/23; patient seen and evaluated and bedside, patient is lethargic does open eyes to verbal stimuli, at this time patient not stable to go back to [facility], potential discharge to hospice facility pending availability REVIEW OF SYSTEMS: Able to obtain secondary to do advanced dementia PHYSICAL EXAMINATION: GENERAL: The patient is alert and oriented x 1 , ill appearance, lethargic, arousable however goes back to sleep HEENT: Pupils are round and equally reacting to light. CARDIOVASCULAR: S1 and S2 present, acute cardiac noted PULMONARY: Chest is clear to auscultation, no wheezing or crackles. ABDOMEN: Soft, nontender, nondistended, normoactive bowel sounds. No palpable organomegaly. MUSCULOSKELETAL: No joint swelling or deformity. EXTREMITIES: No cyanosis, clubbing, or pedal edema. NEUROLOGICAL: Awake alert, answering questions mentation has improved however continue to have severe dementia cognitive impairment Objective - Vital Signs Vital signs: Vital Signs Temp 98.3 F 01/02/23 07:51 Pulse 73 01/02/23 08:45 Resp 18 01/02/23 08:45 BP 149/81 01/02/23 07:51 Pulse Ox 94 L 01/02/23 11:01 FiO2 Intake & Output 01/01/23 01/02/23 01/02/23 18:59 06:59 18:59 Intake Total 900 Output Total 900 500 Balance 0 -500 Intake: Oral 900 Output: Urine 900 500 Other: Voiding Method Incontinent Incontinent Incontinent External Catheter External Catheter External Catheter - Labs CBC & Chem 7: 01/02/23 05:37 01/02/23 05:37 Labs: Abnormal Lab Results - Last 24 Hours (Table) 01/02/23 01/02/23 Range/Units 05:37 05:37 RBC 3.57 L (4.40-5.60) X 10*6/uL Hgb 11.4 L (13.0-17.0) g/dL Hct 35.2 L (39.6-50.0) % MCV 98.6 H (80.0-97.0) FL Plt Count 115 L (140-440) X 10*3/uL Calcium 8.6 L (8.7-10.3) mg/dL Microbiology - Last 24 Hours (Table) 12/30/22 10:52 Blood Culture - Preliminary Blood Assessment and Plan Assessment: Assessment and plan * 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 On 500 twice a day * In regards to urinary tract infection, continue IV Rocephin, urine cultures ordered, patient resuscitated with IV fluid, will change to KVO = * In regards to advanced dementia continue with frequent orientation home medications to be reviewed and reconciled * Hospice consulted>> pending placement to hospice likely by 01/04/23 * CODE STATUS is no code
[2023-01-02] MEDS: FAMOTIDINE 20 MG TAB PO SCH (20:22)
[2023-01-02] MEDS: ARIPiprazole 5 MG TAB PO SCH (20:22)
[2023-01-02] MEDS: ALPRAZolam 0.25 MG TAB PO SCH (20:22)
[2023-01-02] MEDS: CITALOPRAM HYDROBROMIDE 10 MG TAB PO SCH (20:22)
[2023-01-03] MEDS: SENNOSIDES-DOCUSATE SODIUM 1 EACH TAB PO SCH ×2 (08:04→21:01)
[2023-01-03] MEDS: METOPROLOL TARTRATE 12.5 MG TAB PO SCH ×2 (08:04→21:00)
[2023-01-03] MEDS: ASPIRIN 81 MG PO SCH (08:04)
[2023-01-03] MEDS: levETIRAcetam IV 500 MG/5 ML VIAL IVP SCH ×2 (08:04→21:01)
[2023-01-03] MEDS: hydrALAZINE HCL 20 MG/ML 1 ML VIAL IVP PRN (08:22)
[2023-01-03 09:01] VITALS: RESP 16
--- NOTE | 2023-01-03 12:44 | P.PN ---
Subjective Progress Note Date: 01/03/23 * 82-year-old gentleman with past medical history significant for hypertension, advanced dementia, dyslipidemia presented to the emergency department sent in from detention for him. Mentation, noted to have hypoxia and the whole body was stiff. Patient was in usual state of health when all of a sudden he had an episode in his whole body became stiff. EMS was called no tonic-clonic activity was noted. Patient was noted to be stiff and rigid for several seconds. Patient is a poor historian and has advanced dementia. Patient have a brief episode and he snapped out of it patient was sent and also noted to have hypoxia sputum 80% * Workup obtained in ER included CT brain which showed enlarged ventricles no acute intracranial process CT angina chest was obtained which was negative for pulmonary embolism * Blood work obtained including CBC which showed WBC of 8.1 hemoglobin 15 platelet count of 168. INR of 0.9 d-dimer greater than 34 * patient had a plasma lactate of 7.4 serum sodium of 142 potassium 4.1 BUN 20 creatinine 1.05 * Patient had urinalysis done which showed large leukocyte esterase and nitrate positive large WBC noted, patient was started on IV Rocephin urine cultures ordered * 12/31/22: Patient seen and evaluated bedside, patient resuscitated with fluid lactic acid levels improved, patient was started on IV Keppra by neurology, EEG ordered as well, mentation has improved slightly patient needed one-to-one feeding nursing staff at bedside as well * 01/01/2023: Patient seen and evaluated bedside, mentation continued to wax and wane, CRP elevated at 5.5, urine cultures and blood cultures reviewed, waiting for hospice evaluation * 01/02/23; patient seen and evaluated and bedside, patient is lethargic does open eyes to verbal stimuli, at this time patient not stable to go back to [facility], potential discharge to hospice facility pending availability * 01/03/23: Patient seen and evaluated bedside, patient awake however nonverbal answering questions yes and no, hard of hearing, prognosis remains poor will need to be discharged to hospice facility, and phosphorus unable to take patient will need to go back to [facility] is comfort measures will coordinate with case management REVIEW OF SYSTEMS: Able to obtain secondary to do advanced dementia PHYSICAL EXAMINATION: GENERAL: The patient is alert and oriented x 1 , ill appearance, lethargic, arousable however goes back to sleep HEENT: Pupils are round and equally reacting to light. CARDIOVASCULAR: S1 and S2 present, acute cardiac noted PULMONARY: Chest is clear to auscultation, no wheezing or crackles. ABDOMEN: Soft, nontender, nondistended, normoactive bowel sounds. EXTREMITIES: No cyanosis, clubbing, or pedal edema. NEUROLOGICAL: Awake alert, answering questions mentation has improved however continue to have severe dementia cognitive impairment Objective - Vital Signs Vital signs: Vital Signs Temp 98.5 F 01/03/23 08:05 Pulse 69 01/03/23 08:05 Resp 16 01/03/23 08:05 BP 179/102 01/03/23 08:05 Pulse Ox 99 01/03/23 08:05 FiO2 Intake & Output 01/02/23 01/03/23 01/03/23 18:59 06:59 18:59 Intake Total 480 Output Total 800 300 Balance -320 -300 Intake: Oral 480 Output: Urine 800 300 Other: Voiding Method Incontinent Incontinent Incontinent External Catheter External Catheter External Catheter - Labs CBC & Chem 7: 01/02/23 05:37 01/02/23 05:37 Labs: Microbiology - Last 24 Hours (Table) 12/30/22 10:52 Blood Culture - Preliminary Blood Assessment and Plan Assessment: Assessment and plan * 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 On 500 twice a day, and discussed with neurology regarding wean * In regards to urinary tract infection, continue IV Rocephin day 4/7 , urine cultures reviewed , patient resuscitated with IV fluid, will change to KVO * In regards to advanced dementia continue with frequent orientation home medications to be reviewed and reconciled * Hospice consulted>> pending placement to hospice likely by 01/04/23 * CODE STATUS is no code Time with Patient: Greater than 30
[2023-01-03] MEDS: ALPRAZolam 0.25 MG TAB PO SCH (21:01)
[2023-01-03] MEDS: FAMOTIDINE 20 MG TAB PO SCH (21:01)
[2023-01-03] MEDS: CITALOPRAM HYDROBROMIDE 10 MG TAB PO SCH (21:01)
[2023-01-03] MEDS: ARIPiprazole 5 MG TAB PO SCH (23:05)
[2023-01-04] MEDS: SENNOSIDES-DOCUSATE SODIUM 1 EACH TAB PO SCH (09:04)
[2023-01-04] MEDS: METOPROLOL TARTRATE 12.5 MG TAB PO SCH (09:04)
[2023-01-04] MEDS: levETIRAcetam IV 500 MG/5 ML VIAL IVP SCH (09:04)
[2023-01-04] MEDS: ASPIRIN 81 MG PO SCH (09:04)
--- NOTE | 2023-01-04 14:12 | P.DS ---
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 Patient will follow-up with Dr. Burgess in the outpatient setting upon discharge. Patient is to continue with Keppra 500 mg twice daily for the next 3 days and then may discontinue per neurology. Patient and family have met with [facility] hospice and going back to [facility] with [facility] hospice services. Total time taken is greater than 35 minutes. Hospital course This is a 82-year-old male who was recently admitted with concerns of tonic- clonic activity with rigidity and decreased responsiveness found to have altered mentation with significant advanced dementia. Patient was seen and evaluated by neurology underwent workup and was placed on Keppra and has suggested to continue Keppra 500 mg twice daily for the next 3 days and then may discontinue. Patient's overall prognosis with significant comorbidities remains poor and family has met with hospice and will be having [facility] hospice services at [facility]. Patient will be discharged there today. Currently no reports of chest pain, shortness of breath, or palpitations. Patient is afebrile. No reports of nausea or vomiting and oral intake remains poor. Patient will be going to [facility] with [facility] hospice services comfort measures today. Physical exam: Gen: This is a 82-year-old male who is lethargic although arousable, alert and oriented 0-1, elderly-appearing, well-developed HEENT: Head is atraumatic, normocephalic. Pupils equal, round. Sclerae is anicteric. NECK: Supple. No JVD. No lymphadenopathy. No thyromegaly. LUNGS: Clear to auscultation. No wheezes or rhonchi. No intercostal retractions. HEART: Regular rate and rhythm. No murmur. ABDOMEN: Soft. Bowel sounds are present. No masses. No tenderness. EXTREMITIES: No pedal edema. No calf tenderness. NEUROLOGICAL: Patient is awake, alert and oriented x0-1. Diffusely weak Please refer to medication reconciliation sheet for a list of medications. The impression and plan of care has been dictated by Sendy Holland, Nurse Practitioner as directed. Dr. Hans MD I have performed a history and examination and MDM of this patient, discussed the same with the dictator, and agree with the dictator's assessment and plan as written ,documented as a scribe. Based on total visit time, I have performed more than 50% of the visit. Patient Condition at Discharge: Poor Plan - Discharge Summary New Discharge Prescriptions: New levETIRAcetam [Keppra] 500 mg PO Q12HR 3 Days #6 tab Continue Metoprolol Tartrate [Lopressor] 12.5 mg PO BID@0900,2100 Aspirin EC [Ecotrin Low Dose] 81 mg PO DAILY@0900 Citalopram Hydrobromide [CeleXA] 10 mg PO HS@2100 Sennosides/Docusate Sodium [Senna-S 8.6-50 mg Tablet] 1 tab PO BID@0900,2100 ALPRAZolam [Xanax] 0.25 mg PO DAILY PRN #2 tab PRN Reason: Anxiety Famotidine [Pepcid] 20 mg PO HS@2100 Cholecalciferol [Vitamin D3 (25 Mcg = 1000 Iu)] 50 mcg PO DAILY@0900 Lactose-Reduced Food [Ensure Plus] 240 ml PO TID@0900,1200,1700 ARIPiprazole [Abilify] 5 mg PO HS@2100 Acetaminophen [Tylenol] 650 mg PO BID@0900,2100 Acetaminophen Tab [Tylenol] 650 mg PO Q4H PRN PRN Reason: Pain ALPRAZolam [Xanax] 0.25 mg PO HS@2100 #1 tab Discharge Medication List Aspirin EC [Ecotrin Low Dose] 81 mg PO DAILY@0900 08/15/20 [History] Cholecalciferol [Vitamin D3 (25 Mcg = 1000 Iu)] 50 mcg PO DAILY@0900 08/15/20 [History] Famotidine [Pepcid] 20 mg PO HS@2100 08/15/20 [History] Metoprolol Tartrate [Lopressor] 12.5 mg PO BID@0900,209908/15/20 [History] ARIPiprazole [Abilify] 5 mg PO HS@209904/30/21 [History] Acetaminophen [Tylenol] 650 mg PO BID@0900,2100 04/30/21 [History] Citalopram Hydrobromide [CeleXA] 10 mg PO HS@209904/30/21 [History] Lactose-Reduced Food [Ensure Plus] 240 ml PO TID@0900,1200,1700 04/30/21 [History] Acetaminophen Tab [Tylenol] 650 mg PO Q4H PRN 12/30/22 [History] Sennosides/Docusate Sodium [Senna-S 8.6-50 mg Tablet] 1 tab PO BID@0900,209912/30/22 [History] ALPRAZolam [Xanax] 0.25 mg PO DAILY PRN #2 tab 01/04/23 [Rx] ALPRAZolam [Xanax] 0.25 mg PO HS@2099 #1 tab 01/04/23 [Rx] levETIRAcetam [Keppra] 500 mg PO Q12HR 3 Days #6 tab 01/04/23 [Rx] Follow up Appointment(s)/Referral(s): John Burgess MD [Primary Care Provider] - 1-2 days [facility] [NON-STAFF] - 1 Week [facility], [NON-STAFF] - 1 Week Patient Instructions/Handouts: Seizure/Epilepsy Discharge Instructions & Follow-Up Discharge Disposition: TRANSFER TO SNF/ECF
[2023-01-04 16:29] VITALS: BP 141/81; PULSE 79; TEMP 97.3
== END 2023-01-04 15:57 | DRG 100 ==
LOC: EC 07:58 → 4SSUR 11:47 → 5NMEDONC 15:26 → 4SSUR 15:26 → 5NMEDONC 15:47
PROVIDERS: ADMIT Internal Medicine; ATTEND Internal Medicine
DX: G40.509 Epileptic seizures related to external causes, not intractable, without status epilepticus (principal); G92.8 Other toxic encephalopathy; E87.20 Acidosis, unspecified; G91.9 Hydrocephalus, unspecified; F03.C2 Unspecified dementia, severe, with psychotic disturbance; N39.0 Urinary tract infection, site not specified; I11.9 Hypertensive heart disease without heart failure; F02.C0 Dementia in other diseases classified elsewhere, severe, without behavioral disturbance, psychotic disturbance, mood disturbance, and anxiety; I25.10 Atherosclerotic heart disease of native coronary artery without angina pectoris; R09.02 Hypoxemia; Z66 Do not resuscitate; E78.5 Hyperlipidemia, unspecified; H91.90 Unspecified hearing loss, unspecified ear; Z51.5 Encounter for palliative care; Z20.822 Contact with and (suspected) exposure to COVID-19; Z96.652 Presence of left artificial knee joint; Z91.041 Radiographic dye allergy status; Z79.82 Long term (current) use of aspirin; Z85.46 Personal history of malignant neoplasm of prostate; Z92.3 Personal history of irradiation; Z87.820 Personal history of traumatic brain injury; Z28.310 Unvaccinated for COVID-19; Z79.899 Other long term (current) drug therapy; Z86.73 Personal history of transient ischemic attack (TIA), and cerebral infarction without residual deficits
CPT/HCPCS: 36415; 70450; 71045; 71275; 80048; 81001; 82607; 82746; 83605; 84443; 84484; 85025; 85027; 85379; 85610; 85730; 86140; 87040; 87086; 87636; 93005; 94760; 95816; 96361; 96374; 96375; 99285